=== PATIENT | female | born 1950 | race Caucasian/White ===

== ENCOUNTER → 2021-03-03 | Day surgery (SDC) | payer MEDICARE, OTHER ==
[~2021-03-03] MED LIST: ALENDRONATE SOD10 MG; CRESTOR10 MG PO; D3; OR PHACO EYE KIT ONE; PREOP PHACO EYE KIT ONE; VICODIN ES TAB1 EACH PO; Z.0.LISINOPRIL20 MG PO
[2021-03-03 13:00] VITALS: BP 142/70
== END | disposition home or self-care (01) ==
LOC: OR 09:46
PROVIDERS: ATTEND Ophthalmology
DX: H25.11 Age-related nuclear cataract, right eye (principal); I10 Essential (primary) hypertension; E78.2 Mixed hyperlipidemia; E11.9 Type 2 diabetes mellitus without complications; M19.90 Unspecified osteoarthritis, unspecified site; Z88.8 Allergy status to other drugs, medicaments and biological substances; Z01.812 Encounter for preprocedural laboratory examination; Z20.822 Contact with and (suspected) exposure to COVID-19; Z79.899 Other long term (current) drug therapy; Z85.3 Personal history of malignant neoplasm of breast
CPT/HCPCS: 66984; U0002; V2632

== ENCOUNTER → 2021-03-10 | Day surgery (SDC) | payer MEDICARE, OTHER ==
[~2021-03-10] MED LIST changes: +FENTANYL CITRATE/PF 100MCG/2 ML INJ ONE; +MIDAZOLAM HCL 2 MG/2 ML VIAL ONE; +POVIDONE IODINE 0.05% 0.05 % ML PO ONE; +PROPOFOL IV EMULSION 10 MG/ML 20 ML VIAL ONE
[2021-03-10 11:30] VITALS: BP 120/75
== END | disposition home or self-care (01) ==
LOC: OR 08:39
PROVIDERS: ATTEND Ophthalmology
DX: H25.12 Age-related nuclear cataract, left eye (principal); I10 Essential (primary) hypertension; E78.5 Hyperlipidemia, unspecified; Z88.8 Allergy status to other drugs, medicaments and biological substances; Z01.812 Encounter for preprocedural laboratory examination; Z20.822 Contact with and (suspected) exposure to COVID-19; Z79.899 Other long term (current) drug therapy; Z85.3 Personal history of malignant neoplasm of breast
CPT/HCPCS: 66984; J2250; J2704; J3010; U0002; V2632